=== PATIENT | male | born 1970 | race Caucasian/White ===

== ENCOUNTER 2022-03-27 20:15 | Emergency (ER) | payer OTHER ==
[~2022-03-27] VITALS: Ht 177.8 cm; Wt 109.1 kg
[2022-03-27 20:18] VITALS: TEMP 97.2
[2022-03-27] MEDS ORDERED: CEPHALEXIN500 M1 PO (22:03)
[2022-03-27 22:33] VITALS: BP 154/80; PULSE 88
== END 2022-03-27 22:33 | disposition home or self-care (01) ==
LOC: COL.ER 20:15
DX: S61.211A Laceration without foreign body of left index finger without damage to nail, initial encounter (principal); Z95.2 Presence of prosthetic heart valve; Z79.01 Long term (current) use of anticoagulants; Z88.1 Allergy status to other antibiotic agents; W26.0XXA Contact with knife, initial encounter